=== PATIENT | male | born 2000 | race African-American/Black ===

== ENCOUNTER 2020-01-28 18:42 | Emergency (ER) | payer MEDICAID ==
[~2020-01-28] VITALS: Ht 177.8 cm; Wt 82.0 kg
[2020-01-28] MEDS ORDERED: ETOMIDATE 2 MG/ML 10 ML VIAL IV ONE (18:43)
[2020-01-28] MEDS ORDERED: 0.9% SODIUM CHLORIDE 10 ML SYRINGE IVP ONE (18:43)
[2020-01-28] MEDS ORDERED: VECURONIUM BROMIDE 10 MG/VIAL IV ONE (18:43)
[2020-01-28 18:56] VITALS: BP 111/63
[2020-01-28 19:26] LABS: ABG A-A DIFF O2 362.3 mmHg (10-20.0); ABG BASE EXCESS -12.7 mmol/L (-2.0-3.0); ABG CARBOXYHEMOGLOBIN 0.8 % (0.0-3.0); ABG HCO3 14.7 mmol/L (22.0-26.0); ABG METHEMOGLOBIN 0.4 % (0.0-1.5); ABG OXYGEN CONTENT 11.6 mL/dL (15.0-23.0); ABG OXYGEN SATURATION 98.8 % (95.0-98.0); ABG OXYHEMOGLOBIN 97.6 % (94.0-100.0); ABG PCO2 57 mmHg (35-45); ABG PH 7.092 (7.350-7.450); ABG TOTAL HEMOGLOBIN 7.9 G/dL (12.0-18.0); PO2, ARTERIAL BG 293.5 mmHg (80.0-100.0); SITE, BLOOD GAS LFT FEMORAL; SOURCE, BLOOD GAS ARTERIAL; TEMPERATURE, FAHRENHEIT, BG 98.6 FAHREN (96.0-98.6)
[2020-01-28 19:27] LABS: O2 DEVICE,BLOOD GAS BAG VALVE MASK (ROOM AIR)
[2020-01-28 19:36] LABS: BASOPHILS % (AUTO) 0.6 % (0.0-2.0); HEMATOCRIT 22.3 % (41-53); HEMOGLOBIN 7.5 g/dL (13.5-17.5); LYMPHOCYTES # (AUTO) 3.7 K/uL (1.0-4.8); LYMPHOCYTES % (AUTO) 46.9 % (22.0-44.0); MEAN CORPUSCULAR HEMOGLOBIN 31.2 pg (26.0-34.0); MEAN CORPUSCULAR HGB CONC 33.5 G/dL (31.0-37.0); MEAN CORPUSCULAR VOLUME 93 fL (80-100); MONOCYTES # (AUTO) 0.6 K/uL (0.1-1.0); MONOCYTES % (AUTO) 7.4 % (2.0-9.0); NEUTROPHILS # (AUTO) 3.2 K/uL (1.8-7.7); NEUTROPHILS % (AUTO) 40.1 % (40.0-70.0); PLATELET COUNT (AUTO) 125 K/uL (150-450); RED CELL DISTRIBUTION WIDTH 13.1 % (11.5-14.5)
== END 2020-01-28 19:40 | disposition short-term general hospital (02) ==
LOC: EDBD 18:42 → EMS 18:42
DX: T79.4XXA Traumatic shock, initial encounter (principal); S41.112A Laceration without foreign body of left upper arm, initial encounter; S21.212A Laceration without foreign body of left back wall of thorax without penetration into thoracic cavity, initial encounter; S41.012A Laceration without foreign body of left shoulder, initial encounter; J69.0 Pneumonitis due to inhalation of food and vomit; J96.90 Respiratory failure, unspecified, unspecified whether with hypoxia or hypercapnia; F17.200 Nicotine dependence, unspecified, uncomplicated; W45.8XXA Other foreign body or object entering through skin, initial encounter; Y93.89 Activity, other specified; Y92.89 Other specified places as the place of occurrence of the external cause; Y99.8 Other external cause status
CPT/HCPCS: 31500; 36415; 43762; 71045; 82805; 85025; 86850; 86900; 86901; 99291; J3490 ×2; X7700